=== PATIENT | female | born 1955 | race Hispanic/Latino ===

== ENCOUNTER 2017-09-03 06:43 | Day surgery (SDC) | payer OTHER ==
[2017-09-03 07:43] VITALS: BMI 20.9
[2017-09-03 07:54] VITALS: TEMP 97; O2SAT 100
[2017-09-03] MEDS ORDERED: Propofol 10 mg/ml Inj (20 ML) ONE (08:57)
--- NOTE | 2017-09-03 08:58 | CP.SDSHP ---
Same Day Surgery H & P - History Proposed Procedure: COLONSCOPY Pre-Op Diagnosis: SCREENING - Previous Medical/Surgical History Misc: Other Pain: 2.Mild Pain - Allergies Allergies: Allergies No Known Allergies Allergy (Verified 08/29/15 22:26) - Physical Exam General Appearance: N Vital Signs: Vital Signs 09/03/17 07:43 Temperature 97 F L Pulse Rate 79 Respiratory 9 L Rate Blood Pressure 102/53 L O2 Sat by Pulse 100 Oximetry Neuro: WNL Heart: WNL Lungs: WNL GI: WNL - {Optional Preform as Required} Breast: WNL Abdomen: WNL Rectal: Other Integument: WNL : WNL Ortho: WNL ENT: WNL - Impression Pt. Evaluated Today:Candidate for Anesthesia & Procedure: Yes - Date & Time Time: 08:57 Short Stay Discharge - Short Stay Discharge Admitting Diagnosis/Reason for Visit: SCREENING Disposition: HOME/ ROUTINE Referrals: Gopi Beyer MD [Primary Care Provider] -
[2017-09-03] MEDS ORDERED: Lactated Ringer's 1,000 ML IV ONE ×2 (09:01)
[2017-09-03] MEDS ORDERED: Belladonna-Phenobarbital PO ONE (09:45)
[2017-09-03 10:48] VITALS: BP 100/50; PULSE 72; RESP 20
== END 2017-09-03 10:45 | disposition home or self-care (01) ==
LOC: C.ENDO 06:43
PROVIDERS: ATTEND Specialist
DX: Z12.11 Encounter for screening for malignant neoplasm of colon (principal); K58.9 Irritable bowel syndrome, unspecified; K64.8 Other hemorrhoids
CPT/HCPCS: 45378; 88305; J2001; J2704; J7120